=== PATIENT | female | born 1995 | race Caucasian/White ===

== ENCOUNTER 2018-05-30 17:25 | Outpatient (CLI) | payer MEDICAID ==
[~2018-05-30] VITALS: Ht 160 cm; Wt 80.5 kg
[2018-05-30 18:31] VITALS: Ht 160 cm; Wt 80.5 kg
[2018-05-30 18:32] VITALS: BP 92/53; PULSE 93
[2018-05-30] MEDS ORDERED: PNV11TAB PO (18:34)
[2018-05-30] MEDS ORDERED: ACETAMINOPHEN 325 MG TAB PO ONE (19:00)
[2018-05-30] MEDS ORDERED: CEFAZOLIN 1 GM/50 ML (PMX) 50 ML IVPB SCH (20:00)
[2018-05-30] MEDS ORDERED: HYDROCODONE/APAP (5/325) TAB PO ONE (20:00)
[2018-05-30] MEDS ORDERED: LACTATED RINGER'S 1,000 ML IV ONE (20:00)
--- NOTE | 2018-05-30 22:17 | TRIAGE ---
OB Triage Datetime Report Generated by CPN: 05/30/2018 22:16 Datetime: 05/30/2018 21:54 Pain Assessment Pain Scale: 0 Pain Presence: None/Denies Pain Type: N/A Datetime: 05/30/2018 21:00 Stage of : OB Triage Labor Evaluation Frequency: IRREGULAR Monitor Mode: External Duration (sec)2399: 30-50 Quality: Mild Pattern: Normal: <= 5 Contractions in 10 Minutes Resting Tone [place]: Relaxed Heart Rate FHR Baseline Rate: 135 Monitor Mode: External US Variability: Moderate 6-25 bpm Accelerations: 15X15 Decelerations: None Category: Category I Datetime: 05/30/2018 20:11 Pain Assessment Pain Scale: 9 Pain Presence: Constant Pain Type: Burning Pain Location: RIGTH LABIA Pain Relief Measures: Pain Medication Given; Comfort Measures Datetime: 05/30/2018 19:25 Stage of : OB Triage Labor Evaluation Frequency: X0 Monitor Mode: External Duration (sec)2399: X0 Pattern: Normal: <= 5 Contractions in 10 Minutes Resting Tone [place]: Relaxed Contraction Comments: MILD IRRITABILITY NOTED. PT DENIES FEELING CRAMPING OR CONTRACTIONS. Heart Rate FHR Baseline Rate: 135 Monitor Mode: External US Variability: Moderate 6-25 bpm Accelerations: 15X15 Decelerations: None Category: Category I Datetime: 05/30/2018 19:23 Monitor Mode: External US Datetime: 05/30/2018 18:35 Stage of : OB Triage Datetime: 05/30/2018 17:53 Stage of : OB Triage Assessment Type: Triage Maternal Assessment Level of Consciousness: Fully Conscious DTR's/Clonus: DTRs 2+; No Clonus Headache: Denies Blurred Vision: No Respiratory Effort: Unlabored; Regular Rhythm; Equal Expansion Breath Sounds, Left: Clear and Equal Breath Sounds, Right: Clear and Equal Nausea/Vomiting: Denies RUQ Epigastric Pain: Denies Facial Edema: None Temperature Route: Axillary Fall Risk Assessment History of Falling: (0) No Secondary Diagnosis: (0) No Ambulatory Aid: (0) Bedrest/Nurse Assist IV Therapy: (0) No Gait: (0) Normal/Bedrest/Immobile Mental Status: (0) Oriented to Own Ability Fall Score: 0 Fall Risk Score Definition: No Risk: No action required Labor Evaluation Frequency: 0 Monitor Mode: External Pattern: Normal: <= 5 Contractions in 10 Minutes Resting Tone [place]: Relaxed Heart Rate FHR Baseline Rate: 150 Monitor Mode: External US Decelerations: None Pain Assessment Pain Scale: 9 Pain Presence: Constant Pain Type: Sharp; Ache Pain Location: Perineum Pain Goal: 3 Pain Relief Measures: Comfort Measures Datetime: 05/30/2018 17:52 Time of Arrival: 05/30/2018 17:20 EGA: 32.0 Arrived By: Ambulatory Arrived From: Office Chief Complaint: REFERRED FROM DR OFFICE FOR EVALUATION OF VAGINAL SWELLING. DENIES LEAKING, BLEED ING OR UC'S Movement: Present Contractions: Denies/Absent Rupture of Membranes: Denies Vaginal Bleeding: None Vaginal Discharge: Denies Recent Sexual Intercouse: Denies Abdominal Trauma: Not Applicable Patient Complaints: None Time Provider Notified: 05/30/2018 18:55 Provider Notified: DR. BLACK Initial Plan: EFM, CALL OB
--- NOTE | 2018-05-30 22:48 | PN ---
Triage Information Date/Time Reason for visit: Pain on the right side of external genitalia Weeks of Gestation 32 weeks /Para 2 para 1001 Diabetes: none Hypertention: none Objective Vital Signs Date Temp Pulse Resp B/P (MAP) Pulse Ox O2 O2 Flow FiO2 Time Delivery Rate 05/30/18 98.3 93 92/53 (66) 18:32 Contractions: None Results/Medications Result Diagram: 05/30/182019 Results 24 hrs Laboratory Tests Test 05/30/18 20:20 White Blood Count 11.8 H Red Blood Count 3.77 L Hemoglobin 11.1 L Hematocrit 33.6 L Mean Corpuscular Volume 89.1 Mean Corpuscular Hemoglobin 29.4 Mean Corpuscular Hemoglobin Concent 33.0 Red Cell Distribution Width 12.4 Platelet Count 245 Mean Platelet Volume 9.5 Immature Granulocytes % 0.600 H Neutrophils % 71.1 Lymphocytes % 21.1 Monocytes % 5.3 Eosinophils % 1.5 Basophils % 0.4 Nucleated Red Blood Cells % 0.0 Immature Granulocytes # 0.070 H Neutrophils # 8.4 H Lymphocytes # 2.5 Monocytes # 0.6 Eosinophils # 0.2 Basophils # 0.1 Nucleated Red Blood Cells # 0.0 Urine Color YELLOW Urine Clarity CLOUDY A Urine pH 5.0 Urine Specific [place] 1.024 Urine Ketones NEGATIVE Urine Nitrite NEGATIVE Urine Bilirubin NEGATIVE Urine Urobilinogen 1+ H Urine Leukocyte Esterase 1+ H Urine Microscopic RBC 0 Urine Microscopic WBC 13 H Urine Squamous Epithelial Cells MANY A Urine Bacteria FEW A Urine Mucus MODERATE Urine Hemoglobin NEGATIVE Urine Glucose NEGATIVE Urine Total Protein NEGATIVE Imaging Results FINDINGS: A single live intrauterine is identified with heart rate of 131 bpm. Fetus is in a cephalic presentation. Placenta is located anterior. There is no evidence for placental previa or abruption.. Biophysical profile: breathing movement = 2/2 tone = 2/2 motion = 2/2 SANDRA = 2/2 SANDRA = 17.9 cm. IMPRESSION: 1. Single live intrauterine gestation. 2. Biophysical profile = 10/05. 3. SANDRA = 17.9 cm. RPTAT: HMVK .Carlito Venegas MD, Date Time Electronically viewed and signed by .Carlito Venegas MD, on 05/30/2018 20:37 Disposition: Discharge Assessment/Plan 22 years old 2 para 1001 with single intrauterine at 32 weeks with SANDRO of 07/25/2018 complaining of pain on right side of external genitalia. She states good movement. She denies nausea, vomiting, shortness of breath, chest pain, abdominal pain, headache, visual changes, vaginal bleeding or LOF. Exam performed there is a right Bartholin abscess. There is no fluctuation on the abscess. Ancef 1 g IM given. Cephalexin 500 mg every 8 hours ordered. I strongly recommend follow-up in 1-2 weeks with her primary OB or come back to emergency department as probably needs incision and drainage. Urinalysis performed, white BC 13 and leukocyte esterase. Urine culture with sensitivity ordered. I did recommend increase fluid intake and continue cephalexin. FHR: No sign of metabolic acidosis- Category I. She has no uterine contractions. Symptoms and sign of labor, preeclampsia, kick count discussed with patient, she voiced understanding. All of her questions answered. Patient was discharged home in stable condition with the appropriate discharge instructions provided. I would like patient to have close follow-up with her primary physician or outpatient clinic, come back emergency department for incision and drainage of Bartholin cyst. She expressed understanding. All of her questions answered. BLAZE BLACK May 30, 2018 22:48
[2018-05-31] MEDS ORDERED: CEPH-443 PO (09:54)
[2018-05-31] MEDS ORDERED: CLIN300C10 PO (09:54)
== END 2018-05-30 21:54 | disposition home or self-care (01) ==
LOC: OBT 17:25 → L-D 17:27 → OBT 21:54
PROVIDERS: ATTEND Obstetrics & Gynecology
DX: O26.893 Other specified pregnancy related conditions, third trimester (principal); N94.89 Other specified conditions associated with female genital organs and menstrual cycle; Z3A.32 32 weeks gestation of pregnancy
CPT/HCPCS: 36415; 76818; 81001; 85025; 96360; J0690; J7120; Z7500; Z7610; G0463

== ENCOUNTER 2018-05-31 09:06 | Emergency (ER) | payer MEDICAID ==
[~2018-05-31] VITALS: Ht 162.6 cm; Wt 81.0 kg
[~2018-05-31 09:06] MED LIST: PNV11TAB PO
[2018-05-31 09:09] VITALS: BP 106/65; PULSE 89; RESP 19; Ht 162.6 cm; Wt 81.0 kg
[2018-05-31] MEDS ORDERED: LIDOCAINE 1% (MPF) 5 ML VIAL INJ ONE (09:30)
[2018-05-31] MEDS ORDERED: CLIN300C10 PO (09:54)
[2018-05-31] MEDS ORDERED: CEPH-443 PO (09:54)
--- NOTE | 2018-05-31 10:24 | ERD ---
ER Documentation Chief Complaint Chief Complaint evaluated by OB - for cyst removal HPI 22-year-old female presenting with a Bartholin cyst. Patient has had pain for the last week. Had not taken any medications. 8 months . Denies any fevers. Denies medical problems. NKDA. Surgical history denies. Up-to-date on vaccinations. Social history denies ROS All systems reviewed and are negative except as per history of present illness. Medications Home Meds Active Scripts Clindamycin Hcl* (Clindamycin Hcl*) 300 Mg Capsule, 300 MG PO TID for 10 Days, CAP Prov:BALWINDER FINN PA-C 05/31/18 Cephalexin* (Keflex*) 500 Mg Capsule, 500 MG PO QID for 7 Days, CAP Prov:BALWINDER FINN PA-C 05/31/18 Reported Medications [id number] ( ) 1 Each Tablet, 1 TAB PO DAILY, TAB 05/30/18 Allergies Allergies: Coded Allergies: No Known Allergy (Unverified , 05/30/18) PMhx/Soc Medical and Surgical Hx: pt denies Medical Hx, pt denies Surgical Hx Hx Alcohol Use: No Hx Substance Use: No Hx Tobacco Use: No Smoking Status: Never smoker FmHx Family History: No diabetes, No coronary disease, No other Physical Exam Vitals Vital Signs Date Temp Pulse Resp B/P (MAP) Pulse Ox O2 O2 Flow FiO2 Time Delivery Rate 05/31/18 97.8 89 19 106/65 100 09:09 (79) Physical Exam GENERAL: The patient is well-appearing, well-nourished, in no acute dis tressenopathy. No JVD. No bruits. No goiter. CHEST: Clear to auscultation bilaterally. There are no rales, wheezes or rhonch i. HEART: Regular rate and rhythm. No murmurs, clicks, rubs or gallops. ABDOMEN:Soft, nontender and nondistended. Good bowel sounds. No rebound or guarding. No gross peritonitis. No gross organomegaly or masses. SKIN: Erythematous fluctuant mass noted in the right labia. Mild induration. Results 24 hrs Current Medications Medications Dose Sig/Radha Start Time Status Last (Trade) Ordered Route PRN Stop Time Admin Dose Reason Admin Lidocaine 5 ml ONCE ONCE 05/31/18 DC (Xylocaine INJ 09:30 05/31/18 1% (Mpf)) 09:31 Procedures/MDM Abscess Incision and Drainage with irrigation by me: Location: Right labia Anesthesia: 1cc Local 1% Lidocaine Technique: Irrigated. Disrupted loculations w/ instrumentation Packing: None Complications: Neurovascularly intact post procedure 48 hour wound check. Scar minimization instructions given. Patient's skin symptoms have stabilized while they have been evaluated in the department and are appropriate for outpatient care and work up. Exam and w/u not consistent w/ sepsis, deep space infection, or foreign body. MDM: 22-year-old female presents with right colon with abscess. Patient had abscess drained in the ED. Patient will be placed on oral antibiotics which are safe in . I have low suspicion for sepsis. Patient is discharged with strict ER precautions and told to follow-up with primary care within 1-2 days for close evaluation. Patient is told if symptoms change or worsen to return immediately to the ER. All questions answered at discharge Departure Diagnosis: Primary Impression: Bartholin cyst Condition: Stable Patient Instructions: Bartholin's Cyst (I And D) Referrals: COMMUNITY CLINICS YOU HAVE RECEIVED A MEDICAL SCREENING EXAM AND THE RESULTS INDICATE THAT YOU DO NOT HAVE A CONDITION THAT REQUIRES URGENT TREATMENT IN THE EMERGENCY DEPARTMENT. FURTHER EVALUATION AND TREATMENT OF YOUR CONDITION CAN WAIT UNTIL YOU ARE SEEN IN YOUR DOCTORS OFFICE WITHIN THE NEXT 1-2 DAYS. IT IS YOUR RESPONSIBILITY TO MAKE AN APPOINTMENT FOR FOLOW-UP CARE. IF YOU HAVE A PRIMARY DOCTOR --you should call your primary doctor and schedule an appointment IF YOU DO NOT HAVE A PRIMARY DOCTOR YOU CAN CALL OUR PHYSICIAN REFERRAL HOTLINE AT IF YOU CAN NOT AFFORD TO SEE A PHYSICIAN YOU CAN CHOSE FROM THE FOLLOWING [facility] [address] [facility] [facility] [address] [facility]. [facility] [address] [facility] [facility] [address] [facility]. [facility] [address] [facility]. [facility]. [address] Additional Instructions: FOLLOW UP WITH YOUR PRIMARY CARE PHYSICIAN TOMORROW.Return to this facility if you are not improving as expected. BALWINDER FINN PA-C May 31, 2018 10:24
== END 2018-05-31 11:18 | disposition home or self-care (01) ==
LOC: FTE 09:06
DX: O34.81 Maternal care for other abnormalities of pelvic organs, first trimester (principal); N75.0 Cyst of Bartholin's gland; Z3A.08 8 weeks gestation of pregnancy
CPT/HCPCS: 56420; Z7610

== ENCOUNTER 2018-07-18 14:28 | Outpatient (CLI) | payer MEDICAID ==
[~2018-07-18] VITALS: Ht 162.6 cm; Wt 84.1 kg
[~2018-07-18 14:28] MED LIST changes: +CEPH-443 PO; +CLIN300C10 PO
[2018-07-18 14:53] VITALS: Ht 162.6 cm; Wt 84.1 kg
--- NOTE | 2018-07-18 15:38 | PN ---
Triage Information Date/Time Reason for visit: 39+wks marginal cord for NST BPP Weeks of Gestation 39 /Para 2/1 Diabetes: none Hypertention: none Objective Heart Rate: 140's Contractions: None Disposition: Discharge Assessment/Plan BPP 12/07 Cx closed -->Precautions discussed -->Questions answered --->Follow up with her provider ROBERT FERRER M.D. July 18, 2018 15:38
--- NOTE | 2018-07-18 15:39 | TRIAGE ---
OB Triage Datetime Report Generated by CPN: 07/18/2018 15:39 Datetime: 07/18/2018 15:30 Vaginal Exam Dilatation (cms): 1.0 Effacement (%): 50 Station: -2 Exam By: KHEMANI Vaginal Bleeding: None Cervix, Consistency: Moderate Cervix, Position: Posterior Datetime: 07/18/2018 15:16 EGA: 39.0 Datetime: 07/18/2018 14:53 Maternal Assessment Level of Consciousness: Fully Conscious DTR's/Clonus: DTRs 1+ Headache: Denies Blurred Vision: No Respiratory Effort: Unlabored Breath Sounds, Left: Clear and Equal Breath Sounds, Right: Clear and Equal Nausea/Vomiting: Denies RUQ Epigastric Pain: Denies Facial Edema: None Labor Evaluation Frequency: IRREGULAR Monitor Mode: External Duration (sec)2399: 40-60 Quality: Mild Pattern: Normal: <= 5 Contractions in 10 Minutes Resting Tone [place]: Relaxed Heart Rate FHR Baseline Rate: 135 Monitor Mode: External US Variability: Moderate 6-25 bpm Accelerations: 15X15 Decelerations: None Category: Category I Pain Assessment Pain Scale: 0 Pain Presence: None/Denies Pain Type: N/A Pain Goal: 3 Membrane Status: Intact Datetime: 07/18/2018 14:35 Assessment Type: Triage Maternal Assessment Level of Consciousness: Fully Conscious DTR's/Clonus: DTRs 2+; No Clonus Headache: Denies Blurred Vision: No Respiratory Effort: Unlabored; Regular Rhythm; Equal Expansion Breath Sounds, Left: Clear and Equal Breath Sounds, Right: Clear and Equal Nausea/Vomiting: Denies RUQ Epigastric Pain: Denies Lower Extremities Edema: None Degree: None Upper Extremities Edema: None Degree: None Facial Edema: None Fall Risk Assessment History of Falling: (0) No Secondary Diagnosis: (0) No Ambulatory Aid: (0) Bedrest/Nurse Assist IV Therapy: (0) No Gait: (0) Normal/Bedrest/Immobile Mental Status: (0) Oriented to Own Ability Fall Score: 0 Fall Risk Score Definition: No Risk: No action required Datetime: 07/18/2018 14:25 Time of Arrival: 07/18/2018 14:25 EGA: 39.0 Arrived By: Ambulatory Chief Complaint: PT CAME IN FROM CLINIC FOR NST AND BPP ABD EFW FOR MARGINAL CORD INSERTION Movement: Present Contractions: Denies/Absent Rupture of Membranes: Denies Vaginal Bleeding: None Vaginal Discharge: Denies Recent Sexual Intercouse: Denies Abdominal Trauma: Not Applicable Patient Complaints: None Additional Patient Complaints: NONE Time Provider Notified: 07/18/2018 15:25 Provider Notified: HADADIAN Initial Plan: NST, BPP, EFW, SVE Datetime: 05/30/2018 17:53 Fall Score: 0 Fall Risk Score Definition: No Risk: No action required Datetime: 05/30/2018 17:52 EGA: 32.0
== END 2018-07-18 15:25 | disposition home or self-care (01) ==
LOC: OBT 14:28 → L-D 14:29 → OBT 15:25
PROVIDERS: ATTEND Obstetrics & Gynecology
DX: O43.123 Velamentous insertion of umbilical cord, third trimester (principal); O36.8330 Maternal care for abnormalities of the fetal heart rate or rhythm, third trimester, not applicable or unspecified; Z3A.39 39 weeks gestation of pregnancy
CPT/HCPCS: 76815; 76818; 87086; Z7500; G0463

== ENCOUNTER 2018-07-21 17:28 | Inpatient (IN) | payer MEDICAID ==
[~2018-07-21] VITALS: Ht 157.5 cm; Wt 84.7 kg
[~2018-07-21 17:28] MED LIST changes: -CEPH-443 PO; -CLIN300C10 PO
[2018-07-21 17:44] VITALS: BP 113/69; PULSE 93; RESP 17; Ht 157.5 cm; Wt 84.7 kg
--- NOTE | 2018-07-21 20:11 | HP ---
Date/Time of Note Date/Time of Note DATE: 07/21/18 TIME: 20:08 OB - History Hx of Present Free Text/Dictation 22-year-old 2 para 1 at 39 weeks and 3 days of gestation with estimated date of delivery July 25, 2018 Patient presents for NST and BPP for marginal cord insertion She reports uterine contractions, denies vaginal bleeding or leaking fluid Patient reports positive movement GBS status is negative Estimated Due Date: July 25, 2018 : 2 Para: 1 Care: Good Care Abnormal Ultrasound Findings: Marginal cord insertion Obstetrical Complications: None Medical Complications: None Past Family/Social History * Past Medical, Surgical, Family and Obstetric Histories reviewed from chart. OB Admission Exam Vital Signs Vital Signs Vital Signs Date Temp Pulse Resp B/P (MAP) Pulse Ox O2 O2 Flow FiO2 Time Delivery Rate 07/21/18 98.1 93 17 113/69 17:44 (84) Physical Exam HEENT: WNL Heart: Rhythm Normal Lungs: Clear, Equal Abdomen: WNL Extremities: Normal Reflexes: Normal Cervical Dilatation: 2cm Effacement: 25% Station: -3 Membranes: Intact Heart Rate: 140's Accelerations: Accelerations Present Decelerations: No Decelerations Varibility: Moderate Contractions on Admission: 6-10 Minutes Apart Intensity: Moderate Last 72 hours Lab Results PROCEDURE: US OB biophysical profile. CLINICAL INDICATION: contractions TECHNIQUE: Multiple sonographic images of the pelvis were obtained. The images were reviewed on a PACS workstation. COMPARISON: No prior studies are available for comparison. FINDINGS: Gestation: Single live intrauterine gestation. Cardiac activity: 154 beats per minute. Presentation: Vertex. Placenta: Location: Anterior. Appearance: No previa or abruption. Amniotic Fluid: SANDRA = 14.2 cm Biophysical profile: - movement = 2/2 - tone = 2/2 - breathing = 2/2 - SANDRA = 2/2 Total = 8/8 IMPRESSION: Normal biophysical profile. RPTAT: AA . Physician Whit Date Time Electronically viewed and signed by Physician Whit on 18:48 RB/ CC: BLAZE BLACK [phone] PROCEDURE: US OB. CLINICAL INDICATION: Size and dates , contractions TECHNIQUE: Multiple sonographic images of the pelvis and gravid uterus were obtained. The images were reviewed on a PACS workstation. COMPARISON: US PELVIS 05/30/2018 FINDINGS: Gestation: Single live intrauterine gestation. Cardiac activity: 132 beats per minute. Presentation: Vertex. Placenta: Location: Anterior. Appearance: No previa or abruption. Measurements: BPD = 9.3 cm, 37 weeks and 5 days HC = 33.2 cm, 37 weeks and 6 days AC = 35.9 cm, 39 weeks and 6 days FL = 7.4 cm, 37 weeks and 6 days Gestational Age: AUA estimated gestational age: 38 weeks 2 days LMP estimated gestational age: 39 weeks 0 days AUA estimated date of delivery: 07/30/18 The EFW = 3624 g, 66.8%ile based on LMP age. RPTAT: AA IMPRESSION: Single live intrauterine gestation of 38 weeks 2 days by ultrasound criteria. .Lew Estrella MD, MD Date Time Electronically viewed and signed by .Lew Estrella MD, MD on 07/18/2018 15:01 .S/ CC: BLAZE BLACK [phone] OB Assessment/Plan Reason for admission: active labor Induction Method: per Pitocin Protocol Other plan: Admit to labor and delivery Oxytocin augmentation Pain meds as needed Copies To: CC: BLAZE BLACK ; AMANDA FORRESTER MD July 21, 2018 20:10
[2018-07-21] MEDS ORDERED: LACTATED RINGER'S 1,000 ML IV PRN (20:41)
[2018-07-21] MEDS ORDERED: MINERAL OIL LIGHT 10 ML VIAL TOP PRN (21:00)
[2018-07-21] MEDS ORDERED: IBUPROFEN 600 MG TAB PO PRN (21:00)
[2018-07-21] MEDS ORDERED: CARBOPROST 250 MCG INJ IM PRN (21:00)
[2018-07-21] MEDS ORDERED: OXYTOCIN 30 UNITS/LR 500 ML IV SCH ×3 (21:00)
[2018-07-21] MEDS ORDERED: MISOPROSTOL 200 MCG TAB PR PRN (21:00)
[2018-07-21] MEDS ORDERED: BUTORPHANOL 2 MG INJ IV PRN (21:00)
[2018-07-21] MEDS ORDERED: LIDOCAINE 1% (MPF) 30 ML INJ INJ PRN (21:00)
[2018-07-21] MEDS ORDERED: METHYLERGONOVINE 0.2 MG INJ IM PRN (21:00)
[2018-07-21] MEDS ORDERED: OXYTOCIN 30 UNITS/LR 500 ML IV PRN (21:00)
[2018-07-21] MEDS: LACTATED RINGER'S 1,000 ML IV SCH (21:29)
[2018-07-22] MEDS: LACTATED RINGER'S 1,000 ML IV SCH ×3 (00:33→20:33)
--- NOTE | 2018-07-22 10:11 | PREAC ---
Date/Time of Note Date/Time of Note DATE: 07/22/18 TIME: 10:10 Anesthesia Eval and Record Evaluation Time Pre-Procedure Interview DATE: 07/22/18 TIME: 10:10 Age 22 Sex female NPO: Other Preoperative diagnosis labor pain Planned procedure epidural Past Medical History Past Medical History: None Surgery & Anesthesia Issues No known issue Meds Anticoagulation: No Beta Ministerio within 24 hr: No Reason Beta Ministerio not given: Pt. not on B-Ministerio Reported Medications [id number] ( 19) 1 Each Tablet, 1 TAB PO DAILY, TAB 05/30/18 Discontinued Scripts Clindamycin Hcl* (Clindamycin Hcl*) 300 Mg Capsule, 300 MG PO TID for 10 Days, CAP Prov:BALWINDER FINN PA-C 05/31/18 Cephalexin* (Keflex*) 500 Mg Capsule, 500 MG PO QID for 7 Days, CAP Prov:BALWINDER FINN PA-C 05/31/18 Current Medications Lactated Ringer's 1,000 ml @ 125 mls/hr Q8H IV Last administered on 07/22/18at 04:17; Admin Dose 125 MLS/HR; Start 07/21/18 at 20:33 Butorphanol Tartrate (Stadol) 2 mg Q2H PRN IV .PAIN SCALE 6-10 Last administered on 07/22/18at 09:01; Admin Dose 2 MG; Start 07/21/18 at 21:00 Lidocaine (Xylocaine 1% (Mpf)) 30 ml ONCE PRN INJ .EPISIOTOMY; Start 07/21/18 at 21:00 Oxytocin/Lactated Ringer's 500 ml @ 500 mls/hr ONCE POST IV Last administered on 07/21/18at 21:29; Admin Dose 500 MLS/HR; Start 07/21/18 at 21:00 Oxytocin/Lactated Ringer's 500 ml @ 125 mls/hr POST IV ; Start 07/21/18 at 21:00 Ibuprofen (Motrin) 600 mg ONCE PRN PO .PAIN 1-5; Start 07/21/18 at 21:00 Oxytocin/Lactated Ringer's 500 ml @ 0 mls/hr ONCE PRN IV .VAGINAL BLEEDING; Start 07/21/18 at 21:00 Methylergonovine Maleate (Methergine) 0.2 mg ONCE PRN IM .VAGINAL BLEEDING; Start 07/21/18 at 21:00 Carboprost Tromethamine (Hemabate) 250 mcg ONCE PRN IM .VAGINAL BLEEDING; Start 07/21/18 at 21:00 Misoprostol (Cytotec) 1,000 mcg ONCE PRN [place] .VAGINAL BLEEDING; Start 07/21/18 at 21:00 Mineral Oil (Muri-Lube) 10 ml PRN PRN TOP VAGINAL DELIVERY; Start 07/21/18 at 21:00 Lactated Ringer's 1,000 ml @ 2,000 mls/hr Q30M PRN IV .ANESTHESIA; Start 07/21/18 at 20:41 Oxytocin/Lactated Ringer's 500 ml @ 0 mls/hr FOR AUGMENTATION IV ; Start 07/21/18 at 21:00 Meds reviewed: Yes Allergies Coded Allergies: No Known Allergy (Unverified , 07/18/18) Allergies Reviewed: Yes Labs/Studies Labs Reviewed: Reviewed by anesthesiologist Result Diagram: 07/21/18 2030 07/22/18 0510 Laboratory Tests 07/21/18 20:30 07/22/18 05:10 Blood Bank Test 07/21/18 20:30 Antibody Screen NEGATIVE Blood Type B POSITIVE Rh Immune Globulin Candidate NO test: N/A Pre-procedure Exam Last vitals Vital Signs Date Temp Pulse Resp B/P (MAP) Pulse Ox O2 O2 Flow FiO2 Time Delivery Rate 07/21/18 98.1 93 17 113/69 17:44 (84) Airway: Adequate mouth opening, Adequate thyromental dist Mallampati: Mallampati IV Teeth: Normal Lung: Normal Heart: Normal ASA Physical Status ASA physical status: 2 Emergency: None Pre-operative Attestations Prior to commencing anesthesia and surgery, the patient was re-evaluated, there was verification of: *The patient's identity *The results of appropriate recent lab work and preoperative vital signs *The above evaluation not changing prior to induction *Anesthetic plan, risk benefits, alternative and complications discussed with patient/family; questions answered; patient/family understands, accepts and wishes to proceed. MINO DAVILA DO July 22, 2018 10:10
[2018-07-22] MEDS ORDERED: FENTAnyl 2MCG/ML-ROPIV 0.2% 100 ML ONE (10:17)
[2018-07-22] MEDS ORDERED: FENTAnyl 50 MCG/ML VIAL ONE (10:17)
[2018-07-22] MEDS ORDERED: ZOLPIDEM 5 MG TAB PO PRN (10:30)
[2018-07-22] MEDS ORDERED: FENTAnyl 2MCG/ML-ROPIV 0.2% 100 ML BAG EPI SCH (10:30)
[2018-07-22] MEDS ORDERED: NALOXONE (0.4 MG/ML) INJ IV PRN (10:30)
[2018-07-22] MEDS ORDERED: DIPHENHYDRAMINE 50 MG INJ IV PRN (10:30)
[2018-07-22] MEDS ORDERED: ONDANSETRON 4 MG INJ IV PRN ×2 (10:30→15:00)
[2018-07-22] MEDS ORDERED: OXYTOCIN 30 UNITS/LR 500 ML IV SCH (14:56)
[2018-07-22] MEDS: LACTATED RINGER'S 1,000 ML IV* SCH (14:56)
--- NOTE | 2018-07-22 14:59 | LDN ---
Date/Time of Note Date/Time of Note DATE: 07/22/18 TIME: 14:57 Delivery Summary Weeks of Gestation Term gestation Placenta Delivered: Spontaneously Meconium: none Episiotomy: Yes Laceration repair: Medial episiotomy repaired with 2-0 Vicryl Anesthesia type: Epidural Estimated blood loss: 200 Sponge & Needle done & correct: Yes All needle counts correct: Yes Any foreign bodies felt in the: No Delivery Information Sex Sex: female Apgars 1 Minute: 8 5 Minute: 8 Suctioning Nose & mouth suctioned at faith: Yes Delee suction performed: No Umbilical Cord Umbilical cord with: 3 Vessels Cord Blood was obtained: Yes Mother & Baby Disposition Disposition Direct OP Baby's weight 7 pounds 14 ounces/ 3585 g Copies To: CC: BLAZE BLACK BAHAREH MD July 22, 2018 14:59
[2018-07-22] MEDS ORDERED: ACETAMINOPHEN 325 MG TAB PO PRN ×2 (15:00)
[2018-07-22] MEDS ORDERED: MAGNESIUM HYDROXIDE 30ML CUP PO PRN (15:00)
[2018-07-22] MEDS ORDERED: DIBUCAINE 1% 30 GM OINT TOP PRN (15:00)
[2018-07-22] MEDS ORDERED: MISOPROSTOL 200 MCG TAB PR PRN (15:00)
[2018-07-22] MEDS ORDERED: OXYTOCIN 30 UNITS/LR 500 ML IV PRN (15:00)
[2018-07-22] MEDS ORDERED: METHYLERGONOVINE 0.2 MG INJ IM PRN (15:00)
[2018-07-22] MEDS ORDERED: CARBOPROST 250 MCG INJ IM PRN (15:00)
[2018-07-22] MEDS ORDERED: BENZOCAINE 20% 56 ML SPRAY TOP PRN (15:00)
[2018-07-22] MEDS ORDERED: WITCH HAZEL/GLYCERIN PAD PR PRN (15:00)
[2018-07-22] MEDS ORDERED: SENNA/DOCUSATE NA (8.6MG/50MG) TAB PO PRN (15:00)
[2018-07-22 18:10] VITALS: BP 102/63; PULSE 67; RESP 18
[2018-07-22] MEDS: LANOLIN HPA 1 PKT TOP PRN (19:59)
[2018-07-22 20:00] VITALS: BP 95/52; PULSE 72; RESP 18
[2018-07-22] MEDS: IBUPROFEN 600 MG TAB PO PRN (23:30)
[2018-07-23] VITALS: BP 92/50; PULSE 70; RESP 18
[2018-07-23 03:52] VITALS: BP 88/60; PULSE 72; RESP 18
[2018-07-23] MEDS: LACTATED RINGER'S 1,000 ML IV SCH ×2 (04:33→12:33)
[2018-07-23] MEDS: IBUPROFEN 600 MG TAB PO PRN ×4 (05:35→23:42)
[2018-07-23 08:15] VITALS: BP 80/65; PULSE 62; RESP 18
[2018-07-23 12:22] VITALS: BP 89/69; PULSE 74; RESP 18
--- NOTE | 2018-07-23 13:06 | PN ---
Date/Time of Note Date/Time of Note DATE: 07/23/18 TIME: 13:04 OB Subjective Subjective Subjective PPD# 1 Patient is doing well. She denies nausea, vomiting, shortness of breath, chest pain, headache. She has been ambulating without difficulty, tolerating regular diet. Pain is well controlled on current medications OB Objective Objective Objective Vital Signs Date Temp Pulse Resp B/P (MAP) Pulse Ox O2 O2 Flow FiO2 Time Delivery Rate 07/23/18 98.4 74 18 89/69 (76) Room Air 12:22 General: AAO X 3, comfortable, NAD, appropriate mood and affect. ABD: +BS. Soft, non-tender. Uterus 2 cm below umbilicus Flank: No CVA tenderness (B/L) LE: Mild edema. No clubbing, cyanosis, thigh or calf tenderness (B/L). Homans 'sign is negative Laboratory Tests Test 07/21/18 20:30 07/22/18 05:10 07/23/18 07:32 White Blood Count 11.1 10^3/ul 17.3 10^3/ul Red Blood Count 3.91 10^6/ul 3.93 10^6/ul Hemoglobin 11.4 g/dl 11.6 g/dl Hematocrit 34.0 % 35.0 % Mean Corpuscular Volume 87.0 fl 89.1 fl Mean Corpuscular Hemoglobin 29.2 pg 29.5 pg Mean Corpuscular 33.5 g/dl 33.1 g/dl Hemoglobin Concent Red Cell Distribution Width 12.8 % 12.8 % Platelet Count 237 10^3/UL 228 10^3/UL Mean Platelet Volume 9.7 fl 9.9 fl Immature Granulocytes % 1.400 % 0.900 % Neutrophils % 74.0 % 73.1 % Lymphocytes % 18.2 % 19.1 % Monocytes % 4.6 % 5.2 % Eosinophils % 1.3 % 1.2 % Basophils % 0.5 % 0.5 % Nucleated Red Blood Cells % 0.0 /100WBC 0.0 /100WBC Immature Granulocytes # 0.150 10^3/ul 0.160 10^3/ul Neutrophils # 8.2 10^3/ul 12.7 10^3/ul Lymphocytes # 2.0 10^3/ul 3.3 10^3/ul Monocytes # 0.5 10^3/ul 0.9 10^3/ul Eosinophils # 0.1 10^3/ul 0.2 10^3/ul Basophils # 0.1 10^3/ul 0.1 10^3/ul Nucleated Red Blood Cells # 0.0 10^3/ul 0.0 10^3/ul Prothrombin Time 12.6 Sec Prothrombin Time Ratio 1.0 INR International 0.93 Normalized Ratio Activated Partial Thromboplast 25.8 Sec Time Rapid Plasma Reagin NONREACTIVE Hepatitis B Surface Antigen NEGATIVE Sodium Level 138 mmol/L Potassium Level 3.5 mmol/L Chloride Level 108 mmol/L Carbon Dioxide Level 23 mmol/L Anion Gap 7 Blood Urea Nitrogen 6 mg/dl Creatinine 0.46 mg/dl Est Glomerular Filtrat > 60 mL/min Rate mL/min Glucose Level 86 mg/dl Calcium Level 8.5 mg/dl Total Bilirubin 0.5 mg/dl Direct Bilirubin 0.00 mg/dl Indirect Bilirubin 0.5 mg/dl Aspartate Amino Transf (AST/SGOT) 16 IU/L Alanine 11 IU/L Aminotransferase (ALT/SGPT) Alkaline Phosphatase 92 IU/L Total Protein 6.1 g/dl Albumin 3.2 g/dl Globulin 2.90 g/dl Albumin/Globulin Ratio 1.10 OB Assessment/Plan Other plan: 22 years old 2 para 2-0-0-2 s/p normal vaginal delivery at 39 weeks and 3 days. PPD#1 - AF, VSS - Baby is doing well, at bed side. She is bonding well - Contraception methods with R/B/A/FR discussed - Continue care - Discharge home tomorrow - Rx and instruction given - Follow up in 2 and 6 weeks at clinic BLAZE BLACK July 23, 2018 13:06
--- NOTE | 2018-07-23 13:07 | DS ---
Date/Time of Note Date/Time of Note DATE: 07/23/18 TIME: 13:06 Obstetrical Discharge Record Final Diagnosis Final Diagnosis: Term delivered Other Final Diagnosis 22 years old 2 para 2-0-0-2 s/p normal vaginal delivery at 39 weeks and 3 days. PPD#1. course was unremarkable. She is ambulating and tolerating regular diet. She is voiding without difficulty. Pain is controlled on current - AF, VSS - Baby is doing well, at bed side. She is bonding well - Contraception methods with R/B/A/FR discussed - Continue care - Discharge home tomorrow - Rx and instruction given - Follow up in 2 and 6 weeks at clinic Condition on Discharge Physical Assessment Last Vitals: Vital Signs Date Temp Pulse Resp B/P (MAP) Pulse Ox O2 O2 Flow FiO2 Time Delivery Rate 07/23/18 98.4 74 18 89/69 (76) Room Air 12:22 Voiding: Yes Bowel Movement: Yes Breast: Soft, non-tender Fundus: Firm Calf Tenderness: No Patient Condition: Stable BLAZE BLACK July 23, 2018 13:07
[2018-07-23 15:53] VITALS: BP 97/55; PULSE 61; RESP 18
[2018-07-23 19:45] VITALS: BP 100/56; PULSE 63; RESP 18
[2018-07-24] MEDS: LACTATED RINGER'S 1,000 ML IV* SCH ×2 (00:37→00:38)
[2018-07-24] MEDS: LACTATED RINGER'S 1,000 ML IV SCH ×2 (00:38→06:18)
[2018-07-24 03:50] VITALS: BP 99/59; PULSE 70; RESP 18
[2018-07-24] MEDS: IBUPROFEN 600 MG TAB PO PRN (05:39)
[2018-07-24 08:00] VITALS: BP 109/56; PULSE 68; RESP 18
--- NOTE | 2018-07-24 09:25 | DS ---
Date/Time of Note Date/Time of Note DATE: 07/24/18 TIME: 09:23 Obstetrical Discharge Record Final Diagnosis Final Diagnosis: Term delivered Other Final Diagnosis day #2 Status post Patient stable and afebrile Vital signs stable Hematology - 72 Hrs Test 07/21/18 20:30 07/23/18 07:32 07/24/18 09:43 Hematocrit 34.0 % (37.0-47.0) 35.0 % (37.0-47.0) 32.7 % (37.0-47.0) L L L Hemoglobin 11.4 11.6 10.7 g/dl (12.0-16.0) L g/dl (12.0-16.0) g/dl (12.0-16.0) L L Mean Corpuscular 29.2 pg (29.0-33.0) 29.5 29.1 Hemoglobin pg (29.0-33.0) pg (29.0-33.0) Mean Corpuscular 33.5 33.1 32.7 Hemoglobin Concent g/dl (32.0-37.0) g/dl (32.0-37.0) g/dl (32.0-37.0) Mean Corpuscular 87.0 89.1 88.9 Volume fl (82.0-101.0) fl (82.0-101.0) fl (82.0-101.0) Mean Platelet 9.7 fl (7.4-10.4) 9.9 fl (7.4-10.4) 9.4 fl (7.4-10.4) Volume Platelet Count 237 228 204 10^3/UL (140-415) 10^3/UL (140-415) 10^3/UL (140-415) Red Blood Count 3.91 3.93 3.68 10^6/ul (4.20-5.40) 10^6/ul (4.20-5.40 10^6/ul (4.20-5.40 L ) L ) L Red Cell 12.8 % (11.5-14.5) 12.8 % (11.5-14.5) 12.8 % (11.5-14.5) Distribution Width White Blood Count 11.1 17.3 12.0 10^3/ul (4.8-10.8) 10^3/ul (4.8-10.8) 10^3/ul (4.8-10.8) H #H #H Chemistry Test 07/22/18 05:10 Sodium Level 138 mmol/L (135-144) Potassium Level 3.5 mmol/L (3.5-5.1) Chloride Level 108 mmol/L (97-110) Carbon Dioxide Level 23 mmol/L (21-31) Anion Gap 7 (5-13) Blood Urea Nitrogen 6 mg/dl (7-20) L Creatinine 0.46 mg/dl (0.44-1.00) Est Glomerular Filtrat Rate mL/min > 60 mL/min (>60) Glucose Level 86 mg/dl (70-220) Calcium Level 8.5 mg/dl (8.4-10.2) Total Bilirubin 0.5 mg/dl (0.2-1.3) Direct Bilirubin 0.00 mg/dl (0.00-0.20) Indirect Bilirubin 0.5 mg/dl (0-1.1) Aspartate Amino Transf (AST/SGOT) 16 IU/L (15-46) Alanine Aminotransferase (ALT/SGPT) 11 IU/L (13-69) L Alkaline Phosphatase 92 IU/L (42-121) Total Protein 6.1 g/dl (6.1-8.1) Albumin 3.2 g/dl (3.3-4.9) L Globulin 2.90 g/dl (1.3-3.2) Albumin/Globulin Ratio 1.10 Abdomen soft, fundus firm Perineum intact Extremities nontender Assessment and plan Patient stable and doing well Plan to discharge home Patient instructed to follow-up with her own [facility] [employer] in 2 and 6 weeks Vaginal Delivery Obstetrical Delivery: Spontaneous Condition on Discharge Physical Assessment Last Vitals: VS - Last 72 Hours, by Label Date Temp Pulse Resp B/P (MAP) Pulse Ox O2 O2 Flow FiO2 Time Delivery Rate 07/24/18 98.2 68 18 109/56 Room Air 08:00 (73) 07/24/18 97.6 70 18 99/59 (72) Room Air 03:50 07/23/18 98.4 63 18 100/56 Room Air 19:45 (71) 07/23/18 98.2 61 18 97/55 (69) 15:53 07/23/18 98.4 74 18 89/69 (76) Room Air 12:22 07/23/18 97.8 62 18 80/65 (70) 08:15 07/23/18 98.1 72 18 88/60 (69) Room Air 03:52 07/23/18 98.2 70 18 92/50 (64) Room Air 00:00 07/22/18 98.4 72 18 95/52 (66) Room Air 20:00 07/22/18 97.9 67 18 102/63 Room Air 18:10 (76) 07/21/18 98.1 93 17 113/69 17:44 (84) Voiding: Yes Bowel Movement: Yes Breast: Soft, non-tender Fundus: Firm Calf Tenderness: No Patient Condition: Good Copies To: CC: BLAZE BLACK BAHAREH MD July 24, 2018 09:25
--- NOTE | 2018-07-24 11:16 | PAC ---
Date/Time of Note Date/Time of Note DATE: 07/24/18 TIME: 11:16 Post-Anesthesia Notes Post-Anesthesia Note Last documented vital signs Vital Signs Date Temp Pulse Resp B/P (MAP) Pulse Ox O2 O2 Flow FiO2 Time Delivery Rate 07/24/18 98.2 68 18 109/56 Room Air 08:00 (73) Activity: WNL Respiratory function: WNL Cardiovascular function: WNL Mental status: Baseline Pain reasonably controlled: Yes Hydration appropriate: Yes Nausea/Vomiting absent: Yes MINO DAVILA DO July 24, 2018 11:16
[2018-07-24] MEDS: LANOLIN HPA 1 PKT TOP PRN (11:37)
--- NOTE | 2018-07-25 15:02 | DELSUM ---
Delivery Summary A-C Datetime Report Generated by CPN: 07/25/2018 15:02 DELIVERY PERSONNEL Upper Shaper: DARLENE, FADUMO MATERNAL INFORMATION Delivery Anesthesia: Epidural Medications in Delivery: LR W/30 UNITS PITOCIN Delivery QBL (ml): 250 Placenta Cultured: No Maternal Complications: None LABOR SUMMARY EDC: 07/25/2018 00:00 No. Babies in Womb: 1 Attempted: No Labor Anesthesia: Epidural LABOR INFORMATION Reason for Induction: Other Reason for Induction- Other: MATERNAL CHOICE Onset of Labor: 07/21/2018 21:29 Complete Dilatation: 07/22/2018 12:54 Oxytocin: Induction Group B Beta Strep: Negative Antibiotics # of Doses: 0 Steroids Given: None Reason Steroids Not Administered: Not Applicable MEMBRANES Membranes Rupture Method: Spontaneous Rupture of Membranes: 07/22/2018 13:46 Length of Rupture (hr): 0.65 Amniotic Fluid Color: Clear Amniotic Fluid Amount: Moderate Amniotic Fluid Odor: None STAGES OF LABOR Stage 1 hr: 15 Stage 1 min: 25 Stage 2 hr: 1 Stage 2 min: 31 Stage 3 hr: 0 Stage 3 min: 2 Total Time in Labor hr: 16 Total Time in Labor min: 58 VAGINAL DELIVERY Episiotomy: Median Laceration Extension: N/A Laceration Type: None Laceration Repair: Yes Initial Vag Sponge Count: 10 Final Vag Sponge Count: 10 Initial Vag Sharps Count: 1 Final Vag Sharps Count: 5 Sponge Count Correct: Yes; Vaginal Sweep Performed Sharps Count Correct: Yes CSECTION DELIVERY CSection Incision: Lower Uterine Transverse BABY A INFORMATION Infant Delivery Date/Time: 07/22/2018 14:25 Method of Delivery: Vaginal Born in Route : No : N/A Forceps: N/A Vacuum Extraction: N/A Shoulder Dystocia : No SHOULDER DYSTOCIA BABY A Infant Delivery Date/Time: 07/22/2018 14:25 PRESENTATION/POSITION BABY A Presentation: Cephalic Cephalic Presentation: Vertex Vertex Position: Left Occipital Posterior Breech Presentation: N/A PLACENTA INFORMATION BABY A Placenta Delivery Time : 07/22/2018 14:27 Placenta Method of Delivery: Spontaneous Placenta Status: Delivered SCORES BABY A Heart Rate 1 min: >100 bpm Resp Effort 1 min: Good Cry Reflex Irritability 1 min: Cough/Sneeze/Pulls Away Muscle Tone 1 min: Active Motion Color 1 min: Blue/Pale Resuscitation Effort 1 min: Tactile Stimulation; Oxygen SCORE 1 MIN: 8 Heart Rate 5 min: >100 bpm Resp Effort 5 min: Good Cry Reflex Irritability 5 min: Cough/Sneeze/Pulls Away Muscle Tone 5 min: Active Motion Color 5 min: Blue/Pale Resuscitation Effort 5 min: Tactile Stimulation; Oxygen SCORE 5 MIN: 8 INFANT INFORMATION BABY A Gestational Age at Delivery: 39.4 Gestational Status: Full Term- 39- 40.6 Weeks Infant Outcome : Liveborn Infant Condition : Stable Infant Sex: Female IDENTIFICATION/MEDS BABY A ID Band Number: [id number] ID Band Location: Right Leg; Left Arm Sensor Applied: Yes Sensor Number: [id number] Sensor Location : Cord Clamp Vitamin K Given : Not Given Erythromycin Given: Not Given WEIGHT/LENGTH BABY A Birthweight (gm): 3585 Weight (lb): 7 Weight (oz): 14 Length (in): 20.00 Infant Length (cm): 50.80 CORD INFORMATION BABY A No. Cord Vessels: 3 Nuchal Cord : N/A Cord Blood Taken: Yes Suction: Mouth; Nose ASSESSMENT BABY A Complications: None Physical Findings at Delivery: Within Normal Limits Respirations: Grunting; Nasal Flaring Cut Out Stitcher/ALS Called : Yes Care By: RT/RN Transferred To: Remains with Mother
== END 2018-07-24 15:01 | disposition home or self-care (01) | DRG 807 ==
LOC: OBT 17:28 → L-D 17:30 → OBT 19:47 → L-D 20:52 → PP1 07-22 18:09
PROVIDERS: ADMIT Obstetrics & Gynecology; ATTEND Obstetrics & Gynecology
PROC: 10E0XZZ Delivery of Products of Conception, External Approach (ICD-10-PCS; principal; 2018-07-22)
PROC: 0W8NXZZ Division of Female Perineum, External Approach (ICD-10-PCS; 2018-07-22)
DX: O80 Encounter for full-term uncomplicated delivery (principal); Z37.0 Single live birth; Z3A.39 39 weeks gestation of pregnancy
CPT/HCPCS: 62322; 76818; 80053; 85025; 85610; 85730; 86592; 86850; 86900; 86901; 87340; G0463; J0595; J2210; J2405; J2590; J3010; J7120